=== PATIENT | male | born 1970 | race Hispanic/Latino ===

== ENCOUNTER 2016-08-19 04:52 | Observation (INO) | payer BC ==
[2016-08-19] MEDS ORDERED: NORMAL SALINE 1,000 ML IV ONE (05:49)
--- NOTE | 2016-08-19 05:56 | ERNOTE ---
Medical Problem HPI - General Chief Complaint: General Assessment Time Seen by Provider: 08/19/16 05:37 Source: patient Exam Limitations: no limitations - Immun/Allergies/Home Medications Immunizations: IMMUNIZATION HX Immunizations Up to Date Yes History of Influenza Vaccine Yes Hx Pneumococcal Vaccination No Allergies/Adverse Reactions: Allergies No Known Allergies Allergy (Verified 08/19/16 05:07) Home Medications: HOME MEDICATIONS Propranolol HCl [Inderal] 20 mg PO BID 04/06/12 [Last Taken 09/10/14] Dapagliflozin Propanediol [Farxiga] 10 mg PO DAILY 06/18/14 [Last Taken 08/31/14 ] Testosterone Cypionate [Depo-Testosterone] 200 mg IM Q21D 09/06/14 [Last Taken Unknown] Omeprazole [Prilosec] 40 mg PO DAILY 03/14/15 [Last Taken Unknown] HYDROcodone/ACETAMINOPHEN [[place] 5-325 Tablet] 1 tab PO Q4H PRN #20 tab [Last Taken Unknown] - History of Present History Narrative: Pt has had a lot of life stressors, including his twin brother lately. He drank alcohol heavily 2 days ago and hasn't eaten since 3 days ago. Today he had dark diarrhea Timing: getting worse Severity: moderate Review of Systems - Review of Systems Constitutional: Present: weakness, fatigue. Absent: recent illness EYE: Present: no symptoms reported ENT: Present: no symptoms reported Respiratory: Present: no symptoms reported Cardiology: Absent: chest pain, palpitations Gastrointestinal/Abdominal: Present: See HPI, diarrhea. Absent: nausea, vomiting Genitourinary: Present: no symptoms reported Musculoskeletal: Present: no symptoms reported Skin: Present: no symptoms reported Neurological: Present: no symptoms reported Endocrine: Present: no symptoms reported Hematologic/Lymphatic: Present: no symptoms reported Psych: Present: no symptoms reported - Patient's Past Medical History Patient History - Medical: Anemia, Hypothyroidism, Other Patient History - Cardiac/Respiratory: Hypertension, Hyperlipidemia Patient History - Cancer: No Hx of Cancer Patient History - Surgical Procedures: Colonoscopy, EGD, Other Patient History - Other: None - Family History Mother Family History - Medical: Diabetes Type 2 Insulin Dependent Family History - Cardiac/Respiratory: Hypertension, Myocardial Infarction Father Family History - Medical: Diabetes Type 2 Family History - Cardiac/Respiratory: CVA/Stroke, Hypertension, Myocardial Infarction - Social History Living Situations: other Abuse History: No History of abuse Psych History: No pertinent hx Smoking Status: Never smoker Have you smoked in the past 12 months: No Do you dip or chew tobacco: No Alcohol Use: occasionally Drug Use: none - Immunizations Immunizations Up to Date: Yes Hx Pneumococcal Vaccination: No History of Influenza Vaccine: Yes ED Progress - Results and Orders Patient's Lab Results:: I have reviewed the patient's lab results. Results and Orders: Laboratory Tests 08/19/16 08/19/16 08/19/16 05:19 05:32 05:47 WBC 4.0 Hgb 14.2 Hct 42.0 Plt Count 47 L PT INR (Anticoag Therapy) PTT ([place]) Sodium 141 Potassium 3.3 L Chloride 106 Carbon Dioxide 24.4 Anion Gap 13.9 H BUN 17 D Creatinine 0.76 Est GFR (Non-Af Amer) 118 BUN/Creatinine Ratio 22.4 H Random Glucose 158 H Calcium 8.7 Calcium Adj for Albumin 9.3 Total Bilirubin 2.6 H AST 70 H ALT 64 Alkaline Phosphatase 84 Total Protein 7.0 Albumin 2.9 L Stool Occult Blood Positive H 08/19/16 05:47 WBC Hgb Hct Plt Count PT 12.9 H INR (Anticoag Therapy) 1.24 H PTT ([place]) 28.8 Sodium Potassium Chloride Carbon Dioxide Anion Gap BUN Creatinine Est GFR (Non-Af Amer) BUN/Creatinine Ratio Random Glucose Calcium Calcium Adj for Albumin Total Bilirubin AST ALT Alkaline Phosphatase Total Protein Albumin Stool Occult Blood - Vital Signs Patient's Vital Signs:: I have reviewed the patient's vital signs. Vital Signs: Vital Signs 08/19/16 04:59 Temperature 36.5 C Pulse Rate 130 H Respiratory 18 Rate Blood Pressure 169/99 O2 Sat by Pulse 97 Oximetry - EKG EKG: supraventricular tachycardia, nonspecific ST T wave changes EKG read: Interp. by me - X-Ray X-Ray #1 X-Ray: abdomen Interpretation: Reviewed by me X-ray Comments: Moderate fecal retention nothing acute, no obstruction - Progress/Reassessment Chief Complaint: General Assessment Progress:: Improved Progress Note-Subjective: 08/19/16 07:[address] Nassar about admission he agrees with obs admit. Departure - Departure Clinical Impression: Thrombocytopenia, Alcohol abuse GI bleed Qualifiers: GI bleed type/associated pathology: gastritis Gastritis type: alcoholic Qualified Code(s): K29.21 - Alcoholic gastritis with bleeding Disposition: CH Condition: Fair
[2016-08-19 06:01] LABS: Hemoglobin 14.2 gm/dL (13.5-18.0); Mean Corpuscular Hemoglobin 31.8 pg (27-31); Mean Corpuscular Hgb Conc 33.8 g/dl (32-36); Mean Platelet Volume 12.5 fl (6.0-9.5); Neutrophil # 2.4 K/mm3 (1.3-6.0); Neutrophil % 59.9 % (42-75.0); Platelet Count 47 K/mm3 (150-450); Red Blood Count 4.47 M/mm3 (4.7-6.0); Red Cell Distribution Width 13.8 % (11.5-14.0)
[2016-08-19 06:13] LABS: Prothrombin Time (Patient) 12.9 Seconds (9.4-11.4)
[2016-08-19 06:16] LABS: INR 1.24 INR (0.90-1.10); Partial Thrombolplastin Time 28.8 Seconds (24-32)
[2016-08-19 06:18] LABS: Albumin * 2.9 gm/dl (3.4-5.0); Anion Gap 13.9 mmol/L (6.8-13.8); BUN/Creatinine Ratio 22.4 (9.0-21.6); Bilirubin, Total 2.6 mg/dL (0.0-1.1); Ca. Corrected For Albumin 9.3 mg/dL (8.4-10.2); Calcium * 8.7 mg/dL (7.9-10.9); Carbon Dioxide 24.4 mmol/L (24-32.6); Potassium 3.3 mmol/L (3.4-4.6)
--- OUTSIDE RECORDS SUMMARY | 2016-08-19 06:18 | XMS REPORT | Continuity of Care Document ---
:1970 Author Organization [facility] ([facility]) Address [address] [place] [address] Phone [phone] Care Team Providers Name Role Phone Linda Ventura Primary Care Provider [phone] Source Comments This disclosure is being made pursuant to the Care Everywhere program, applicable federal and state laws, and may not contain all informaitonavailable regarding this patient.[facility] ([facility]) Active Allergies and Adverse Reactions No Known Allergies Current Medications Prescription Sig. Disp. Refills Start Date End Date Status atorvastatin 10 mg Take 10 mg by mouth 5 07/27/2016 Active tablet daily. FARXIGA 10 mg tablet Take 10 mg by mouth 10 07/27/2016 Active daily. ibuprofen 800 mg TAKE ONE TABLET BY 1 07/27/2016 Active tablet MOUTH THREE TIMES DAILY NEEDED WITH FOOD omeprazole 40 mg TAKE ONE CAPSULE BY 5 07/27/2016 Active enteric coated MOUTH DAILY BEFORE capsule EATING propranolol 20 mg Take 20 mg by mouth 07/27/2016 Active tablet daily. testosterone Inject 200 mg Active cypionate 200 mg/mL intramuscularly every 3 injection weeks. Active Problems Not on file Most Recent Encounters Date Type Specialty Providers Description 08/13/2016 Office Visit [facility] Sm[facility] Shearer Dx: Thrombocytopenia Oncology MD Stevo (Primary Dx) 08/12/2016 Office Visit Smooth Johnston Chief Comp: Patient Oncology MD Stevo Reported Reason For Visit Social History Tobacco Use Types Packs/Day Years Used Date Never Smoker Smokeless Tobacco: Never Used Last Filed Vital Signs Vital Sign Reading Time Taken Blood Pressure 129/82 08/13/2016 9:51 AM CDT Pulse 74 08/13/2016 9:51 AM CDT Temperature 37 C (98.6 F) 08/13/2016 9:51 AM CDT Respiratory Rate 16 08/13/2016 9:51 AM CDT Height 1.715 m (5' 7.52") 08/13/2016 9:49 AM CDT Weight 114.7 kg (252 lb 13.9 oz) 08/13/2016 9:49 AM CDT Body Mass Index 39 08/13/2016 9:49 AM CDT Oxygen Saturation 95% 08/13/2016 9:51 AM CDT Plan of Care Date Type Specialty Providers Description 09/24/2016 Appointment Radiology Chief Comp: Patient Reported Reason For Visit 09/24/2016 Appointment Med GI/Hepatology Jose Hanson MD Chief Comp: Patient [address] [place] [address] Visit [phone] (Fax) 09/24/2016 Appointment Med Hematology and Smooth Malhotra Chief Comp: Patient Oncology MD Stevo Reported Reason For [address] [place] [address] [phone] (Fax) Health Maintenance Due Date Last Done Comments Hepatitis B Vaccine (1 of 3 - Primary Series) 1970 Tdap Vaccine 1981 Lipid Disorder Screening 1988 MMR Vaccine 1988 Td Vaccine 1988 Influenza Vaccine: Seasonal (Season Ended) 2016 Results from Last 3 Months DIFFERENTIAL (08/13/2016 9:55 AM) Component Value Range % Neutrophils-Auto Diff 55.5 % Neutrophils-Auto Diff 1970(L) 9029-5433 /MM3 % Lymphocytes-Auto Diff 24.8 % Lymphocytes-Auto Diff 240 586-3830 /MM3 % Monocytes-Auto Diff 13.8 % Monocytes-Auto Diff 490 130-860 /MM3 % Eosinophils-Auto Diff 4.5 % Eosinophils-Auto Diff 160 40-390 /MM3 % Basophils 1.1 % Basophils-Auto Diff 40 10-136 /MM3 % Immature Granulocytes-Auto Diff 0.3 % Immature Granulocytes-Auto Diff 10 /MM3 Specimen Whole Blood CBC (COMPLETE BLOOD COUNT) (08/13/2016 9:55 AM) Component Value Range WBC Count 3.6(L) 3.7-10.5 K/MM3 RBC Count 4.89 4.50-6.20 M/MM3 Hemoglobin 15.3 13.2-17.7 g/dL Hematocrit 45 40-52 % MCV (Mean Corpuscular Volume) 93 82-99 FL MCH (Mean Corpuscular Hemoglobin) 31 25-35 PG MCHC (Mean Corpuscular Hemoglobin Concentration) 34 32-36 % Platelet Count 47(L) 150-400 K/MM3 MPV (Mean Platelet Volume) 12.4(H) 9.4-12.3 FL RBC Dist Width-STD 48.1(H) 35.1-43.9 FL RBC Distrib Width 14.1 9.0-14.5 % Nucleated RBC 0 /100 WBC Specimen Whole Blood VITAMIN B12 (08/13/2016 9:55 AM) Component Value Range Vitamin B12 1466(H)Comment: 211-946 pg/mL New analytical immunoassay with different reference range instituted 02/21/2013 AT 830AM Normal 211 - 946 pg/mL [id number] - 210 pg/mL Deficient<150pg/mL Specimen Blood BLOOD CELL MORPHOLOGY (08/13/2016 9:55 AM) Specimen Whole Blood BLOOD SMEAR MORPHOLOGY (DONE BY TECHNOLOGIST) (08/13/2016 9:55 AM) Component Value Range Smear Review, Tech The erythrocytes appear normocytic and normochromic with no significant anisopoikilocytosis. Leukocytes appear slightly decreased with mild neutropenia and normal morphology. No abnormal cells are seen. Platelets appear moderately decreased with occasional large forms seen. Platelet clumps are not observed. Specimen Whole Blood RETICULOCYTES (08/13/2016 9:55 AM) Component Value Range RBC Count 4.89 4.50-6.20 M/MM3 Retic-% 2.6(H) 0.4-2.1 % Automated Retic, Absolute Count 125.2 12.0-130.0 K/MM3 Specimen Whole Blood LACTATE DEHYDROGENASE (LDH) (08/13/2016 9:55 AM) Component Value Range LDH 251(H) 135-225 U/L Specimen Blood COMPREHENSIVE METABOLIC PANEL (CMP) (08/13/2016 9:55 AM) Component Value Range Sodium 142 135-145 mEq/L Potassium 4.1 3.5-5.0 mEq/L Chloride 104 95-107 mEq/L CO2 23 22-29 mEq/L BUN 6(L) 10-20 mg/dL Creatinine 0.7Comment: 0.6-1.2 mg/dL Creatinine switched to enzymatic method on 08/05/2010.GFR equation switched to IDMS-traceable MDRD equation on 08/05/2010. Calculated GFR values are not valid in clinical settings where serum creatinine is changing. Glucose 176(H)Comment: 65-99 mg/dL The Expert Committee on the Diagnosis and Classification of Diabetes has defined impaired fasting glucose as greater than or equal to 100 mg/dL but less than 126 mg/dL.(Diabetes Care 28 (Suppl 1)S41,2005) Calcium 8.8 8.5-10.5 mg/dL Total Protein 7.5 6.0-8.0 g/dL Albumin 3.5 3.4-4.8 g/dL AST 129(H)Comment: 0-40 U/L Adult reference ranges updated on 02/21/13 at 830am ALP 88 40-129 U/L Bilirubin Total 0.9 <=1.2 mg/dL ALT 85(H)Comment: 0-41 U/L The upper limit of normal for alanine aminotransferase (ALT) reference ranges for adults is controversial with some authorities recommending limit as low as 30 U/L for males and 19 U/L for females. Th ere is increased incidence of subclinical liver disease (e.g., early steatohepatitis) in patients with ALT values in the range of 31-41 U/L for males and 20-33 U/L for females. ALT values should alway s be interpreted in conjunction with clinical history, physical examination findings, and, if applicable, data from other diagnostic tests. Anion Gap 15 <17 mEq/L Calculated GFR >90 >60 mL/min/1.73 m2 Specimen Blood CBC WITH DIFFERENTIAL (08/13/2016 9:55 AM) Specimen Whole Blood Narrative The following orders were created for panel order CBC WITH DIFFERENTIAL. Procedure Abnormality Status --------- ------ CBC (COMPLETE BLOOD COUNT)[[id number]] AbnormalFinal result DIFFERENTIAL[[id number]] AbnormalFinal result Please view results for these tests on the individual orders.
[2016-08-19] MEDS ORDERED: PANTOPRAZOLE SODIUM 40 MG in NORMAL SALINE 100 ML IV ONE (06:56)
[2016-08-19] MEDS ORDERED: SUCRALFATE 1 G/10 ML UDC PO ONE (06:57)
[2016-08-19] MEDS: NORMAL SALINE 1,000 ML IV PRN (07:32)
--- OUTSIDE RECORDS SUMMARY | 2016-08-19 07:36 | XMS REPORT | Continuity of Care Document ---
:1970 Author Organization [facility] ([facility]) Address [address] [place] [address] Phone [phone] Care Team Providers Name Role Phone Linda Ventura Primary Care Provider [phone] Source Comments This disclosure is being made pursuant to the Care Everywhere program, applicable federal and state laws, and may not contain all informaitonavailable regarding this patient.[facility] ([facility]) Active Allergies and Adverse Reactions No [...] Patient [address] [place] [address] Visit [phone] (Fax) 09/24/2016 Appointment Med Hematology and Smooth Malhotra Chief Comp: Patient Oncology MD Stevo Reported Reason For [address] [place] [address] [phone] (Fax) Health Maintenance Due Date Last Done Comments Hepatitis B Vaccine (1 of 3 - Primary Series) 1970 Tdap Vaccine 1981 Lipid Disorder Screening 1988 MMR Vaccine 1988 Td Vaccine 1988 Influenza Vaccine: Seasonal (Season Ended) 2016 Results from Last 3 Months DIFFERENTIAL (08/13/2016 9:55 AM) Component Value Range % Neutrophils-Auto Diff 55.5 % Neutrophils-Auto Diff 1970(L) 8778-5502 /MM3 % Lymphocytes-Auto Diff 24.8 % Lymphocytes-Auto Diff 183 162-1064 /MM3 % Monocytes-Auto Diff 13.8 % Monocytes-Auto [...] AT 830AM Normal 211 - 946 pg/mL [id number] - 210 pg/mL Deficient<150pg/mL Specimen Blood BLOOD [...] Abnormality Status --------- ------ CBC (COMPLETE BLOOD COUNT)[[id number]] AbnormalFinal result DIFFERENTIAL[[id number]] AbnormalFinal result Please view results for these tests on the individual orders.
[2016-08-19] MEDS ORDERED: PANTOPRAZOLE SODIUM 40 MG in NORMAL SALINE 100 ML IV SCH (07:45)
[2016-08-19 12:21] LABS: Hematocrit 39.2 % (42.0-52.0); Hemoglobin 13.4 gm/dL (13.5-18.0); Mean Cell Volume 94.5 fl (78-100); Mean Corpuscular Hemoglobin 32.3 pg (27-31); Mean Corpuscular Hgb Conc 34.2 g/dl (32-36); Mean Platelet Volume 12.3 fl (6.0-9.5); Neutrophil # 2.5 K/mm3 (1.3-6.0); Neutrophil % 62.5 % (42-75.0); Platelet Count 43 K/mm3 (150-450); Red Blood Count 4.15 M/mm3 (4.7-6.0); Red Cell Distribution Width 13.9 % (11.5-14.0); White Blood Count 4.1 K/mm3 (4.0-10.5)
[2016-08-19 12:30] LABS: Anion Gap 12.8 mmol/L (6.8-13.8); BUN/Creatinine Ratio 22.2 (9.0-21.6); Calcium * 8.4 mg/dL (7.9-10.9); Carbon Dioxide 24.1 mmol/L (24-32.6); Estimated Creat Clear 125.3; Potassium 3.9 mmol/L (3.4-4.6)
[2016-08-19] MEDS: PANTOPRAZOLE SODIUM 40 MG in NORMAL SALINE 100 ML IV SCH (19:34)
--- NOTE | 2016-08-19 23:54 | HP ---
Chief Complaint - Chief Complaint Date of Service: 08/19/16 Time of Service: 16:00 Chief Complaint: Bloody stool History of Present Illness: Karson is a 45 yo male with known thrombocytopenia, followed at [facility]. Reports baseline near 45,000. In the last 24 hours he has had nausea and bloody stool that prompted him to go to the ER. He reports being under more stress than usual as his twin brother just from bleeding esophageal varice. He denies any NSAID use. Hemoglobin in the ER was normal. He denies hematemesis. He does not have any known varices, last EGD 3 years ago. - Patient's Past Medical History Patient History - Medical: Anemia, Hypothyroidism Patient History - Cardiac/Respiratory: Hypertension, Hyperlipidemia Patient History - Cancer: No Hx of Cancer Patient History - Surgical Procedures: Colonoscopy, EGD Patient History - Other: None - Family History Mother Family History - Medical: Diabetes Type 2 Insulin Dependent Family History - Cardiac/Respiratory: Hypertension, Myocardial Infarction Family History - Cancer: No pertinent family hx Father Family History - Medical: Diabetes Type 2 Family History - Cardiac/Respiratory: CVA/Stroke, Hypertension, Myocardial Infarction Family History - Cancer: No pertinent family hx Brother Family History - Medical: , Alcohol Abuse, Other - Cirrhosis, Esophageal Varices - Social History Living Situations: other Abuse History: No History of abuse Psych History: No pertinent hx Smoking Status: Never smoker Have you smoked in the past 12 months: No Do you dip or chew tobacco: No Patient requests Smoking Cessation Consult: No Initiate information on Smoking Cessation: No Alcohol Use: occasionally Drug Use: none - Immunizations Immunizations Up to Date: Yes Hx Pneumococcal Vaccination: No History of Influenza Vaccine: Yes Review Of Systems (GEN) - Review of Systems Generalized/Overall Review: Present: No Symptoms Reported EENTM: Present: No Symptoms Reported Respiratory: Present: No Symptoms Reported Cardiac: Present: No Symptoms Reported Abdominal: Present: Nausea, Melena. Absent: Hematemesis, Abdominal Pain, Constipation Genitourinary: Present: No Symptoms Reported Musculoskeletal: Present: No Symptoms Reported Neurological: Present: No Symptoms Reported Skin: Present: No Symptoms Reported Endocrine: Present: No Symptoms Reported Immunizations: IMMUNIZATION HX Immunizations Up to Date Yes History of Influenza Vaccine Yes Hx Pneumococcal Vaccination No Allergies/Adverse Reactions: Allergies Allergy/AdvReac Type Severity Reaction Status Date / Time No Known Allergies Allergy Verified 08/19/16 05:07 Home Medications: HOME MEDICATIONS Propranolol HCl [Inderal] 20 mg PO DAILY 04/06/12 [Last Taken 09/10/14] Dapagliflozin Propanediol [Farxiga] 10 mg PO DAILY 06/18/14 [Last Taken 08/31/14 ] Testosterone Cypionate [Depo-Testosterone] 200 mg IM Q21D 09/06/14 [Last Taken Unknown] Omeprazole [Prilosec] 40 mg PO DAILY 03/14/15 [Last Taken Unknown] HYDROcodone/ACETAMINOPHEN [[place] 5-325 Tablet] 1 tab PO Q4H PRN #20 tab [Last Taken Unknown] Exam - Exam Vital Signs: Vital Signs - Last Taken Temp 37.2 C 08/19/16 19:00 Pulse 104 H 08/19/16 19:00 Resp 16 08/19/16 19:00 BP 129/71 08/19/16 19:00 Pulse Ox 96 08/19/16 19:00 Constitutional: Present: Alert, Oriented x3, Cooperative, No distress ENT Exam: Present: hearing grossly normal Eye Exam: bilateral eye: normal inspection Respiratory: Present: lungs clear, normal breath sounds Cardiovascular/Chest: Present: regular rate, rhythm, no murmur Abdomen: Present: Normal bowel sounds, soft, nontender, nondistended, no rebound tenderness Extremity: Present: normal range of motion, non-tender, normal inspection, no pedal edema Skin Exam: Present: normal color, warm/dry, no cyanosis Diagnostic Studies: Abnormal Lab Results 08/19/16 08/19/16 Range/Units 12:10 12:10 RBC 4.15 L (4.7-6.0) M/mm3 Hgb 13.4 L (13.5-18.0) gm/dL Hct 39.2 L (42.0-52.0) % MCH 32.3 H (27-31) pg Plt Count 43 L (150-450) K/mm3 MPV 12.3 H (6.0-9.5) fl Monocytes % 12.6 H (0.0-9) % Lymphocytes # 0.9 L (1.5-3.5) k/mm3 Chloride 107 H (97-106) mmol/L BUN/Creatinine Ratio 22.2 H (9.0-21.6) Random Glucose 159 H (70-110) mg/dL Laboratory Results WBC 4.1 K/mm3 (4.0-10.5) 08/19/16 12:10 RBC 4.15 M/mm3 (4.7-6.0) L 08/19/16 12:10 Hgb 13.4 gm/dL (13.5-18.0) L 08/19/16 12:10 Hct 39.2 % (42.0-52.0) L 08/19/16 12:10 MCV 94.5 fl (78-100) 08/19/16 12:10 MCH 32.3 pg (27-31) H 08/19/16 12:10 MCHC 34.2 g/dl (32-36) 08/19/16 12:10 RDW 13.9 % (11.5-14.0) 08/19/16 12:10 Plt Count 43 K/mm3 (150-450) L 08/19/16 12:10 MPV 12.3 fl (6.0-9.5) H 08/19/16 12:10 Immature Gran % (Auto) 0.20 % (0.001-0.429) 08/19/16 12:10 Immature Gran # (Auto) 0.01 K/mm3 (0.000-0.0310) 08/19/16 12:10 Neutrophils % 62.5 % (42-75.0) 08/19/16 12:10 Lymphocytes % 21.5 % (20-51) 08/19/16 12:10 Monocytes % 12.6 % (0.0-9) H 08/19/16 12:10 Eosinophils % 2.2 % (0.0-3.0) 08/19/16 12:10 Basophils % 1.0 % (0.0-1.0) 08/19/16 12:10 Nucleated RBC % 0.0 k/mm3 (0-1) 08/19/16 12:10 Neutrophils # 2.5 K/mm3 (1.3-6.0) 08/19/16 12:10 Lymphocytes # 0.9 k/mm3 (1.5-3.5) L 08/19/16 12:10 Monocytes # 0.5 k/mm3 (0.0-1.0) 08/19/16 12:10 Eosinophils # 0.1 k/mm3 (0.0-0.7) 08/19/16 12:10 Absolute Basophils 0.0 k/mm3 (0.0-0.1) 08/19/16 12:10 PT 12.9 Seconds (9.4-11.4) H 08/19/16 05:47 INR (Anticoag Therapy) 1.24 INR (0.90-1.10) H 08/19/16 05:47 PTT ([place]) 28.8 Seconds (24-32) 08/19/16 05:47 Sodium 140 mmol/L (132-142) 08/19/16 12:10 Plasma Sodium 141 mmol/L (130-142) 08/19/16 12:10 Potassium 3.9 mmol/L (3.4-4.6) 08/19/16 12:10 Chloride 107 mmol/L (97-106) H 08/19/16 12:10 Carbon Dioxide 24.1 mmol/L (24-32.6) 08/19/16 12:10 Anion Gap 12.8 mmol/L (6.8-13.8) 08/19/16 12:10 BUN 16 mg/dL (6-23) 08/19/16 12:10 Creatinine 0.72 mg/dL (0.4-1.4) 08/19/16 12:10 Est GFR (Non-Af Amer) 125 mL/min (60-130) 08/19/16 12:10 BUN/Creatinine Ratio 22.2 (9.0-21.6) H 08/19/16 12:10 Random Glucose 159 mg/dL (70-110) H 08/19/16 12:10 Calcium 8.4 mg/dL (7.9-10.9) 08/19/16 12:10 Calcium Adj for Albumin 9.3 mg/dL (8.4-10.2) 08/19/16 05:47 Total Bilirubin 2.6 mg/dL (0.0-1.1) H 08/19/16 05:47 AST 70 U/L (0-48) H 08/19/16 05:47 ALT 64 U/L (19-67) 08/19/16 05:47 Alkaline Phosphatase 84 U/L (50-170) 08/19/16 05:47 Total Protein 7.0 gm/dL (6.2-8.2) 08/19/16 05:47 Albumin 2.9 gm/dl (3.4-5.0) L 08/19/16 05:47 Stool Occult Blood Positive H 08/19/16 05:19 Assessment/Plan - Narrative Narrative: Karson is a 45 yo male with GI bleed. Hemoglobin initially normal. Will admit to observation due to his thrombocytopenia he is at higher risk for complications and needs to have hemoglobin monitored serially for 24 hours. If stable will plan to discharge to home tomorrow and expect 1 midnight stay. Platelets are stable compared to his baseline. Will place on IV protonix for treatment of suspected gastric stress ulcer. Esophageal Varices are a consideration, but would expect hematemesis or more significant hemoglobin drop. - Assessment/Plan (1) GI bleed Problem: Acute Qualifiers: GI bleed type/associated pathology: gastritis Gastritis type: alcoholic Qualified Code(s): K29.21 - Alcoholic gastritis with bleeding (2) Thrombocytopenia Problem: Acute
[2016-08-20 00:28] LABS: Hemoglobin 12.1 gm/dL (13.5-18.0)
[2016-08-20] MEDS: NORMAL SALINE 1,000 ML IV PRN (03:57)
[2016-08-20 05:38] LABS: Hematocrit 36.6 % (42.0-52.0)
[2016-08-20 07:15] LABS: Mean Cell Volume 95.3 fl (78-100); Mean Corpuscular Hemoglobin 31.8 pg (27-31); Mean Corpuscular Hgb Conc 33.4 g/dl (32-36); Mean Platelet Volume 12.9 fl (6.0-9.5); Neutrophil # 1.5 K/mm3 (1.3-6.0); Neutrophil % 54.3 % (42-75.0); Platelet Count 39 K/mm3 (150-450); Red Cell Distribution Width 13.9 % (11.5-14.0); White Blood Count 2.8 K/mm3 (4.0-10.5)
[2016-08-20] MEDS: PANTOPRAZOLE SODIUM 40 MG in NORMAL SALINE 100 ML IV SCH (10:30)
[2016-08-20] MEDS ORDERED: ACETAMINOPHEN 325 MG TABLET PO PRN (10:49)
[2016-08-20 11:02] LABS: Hematocrit 37.8 % (42.0-52.0); Hemoglobin 12.8 gm/dL (13.5-18.0); Mean Cell Volume 94.5 fl (78-100); Mean Corpuscular Hgb Conc 33.9 g/dl (32-36); Mean Platelet Volume 12.2 fl (6.0-9.5); Neutrophil # 1.8 K/mm3 (1.3-6.0); Neutrophil % 62.8 % (42-75.0); Platelet Count 37 K/mm3 (150-450); Red Cell Distribution Width 13.8 % (11.5-14.0); White Blood Count 2.9 K/mm3 (4.0-10.5)
[2016-08-20 11:37] VITALS: BP 122/77
--- NOTE | 2016-08-20 11:55 | DS ---
(1) GI bleed Diagnosis(s): Karson Cazares is a 45 yo male admitted with Upper GI bleed with witnessed hematemesis and hemoccult positive stools. His initial hemoglobin was not significantly low so he was admitted to observation and started on PPI. He had serial hemoglobins that did not drop significantly. His vitals were stable. With no evidence of acute GI bleeding he was discharged to home. Discussed with general surgery, Dr. Bay, who recommended outpatient scopes. He will be discharged to home on continued PPI for the next month. Educated to avoid NSAIDs , alcohol, tobacco, and will be set up for outpatient EGD with his GI in [place]. Problem: Acute Qualifiers: GI bleed type/associated pathology: gastritis Gastritis type: acute gastritis Qualified Code(s): K29.01 - Acute gastritis with bleeding (2) Thrombocytopenia Problem: Acute (3) Depression Problem: Acute Procedures Performed: none Discharge Disposition: Home self care Disposition: Home self-care Condition: Good Discharge Activity: Activity as tolerated Discharge Diet: General/regular food Referrals: Linda Ventura, [facility] [Primary Care Provider] - [facility]OUTSIDE [Non Staff Physicians] - ([facility] (already a patient , unsure of name) Needs appt moved up to next available for possible EGD/ Colonoscopy for GI Bleed) Problem Oriented Discharge Instructions to Patient/Family: Gastrointestinal Bleeding, [id number] Additional Patient Instructions (free text): Avoid aspirin, ibuprofen, aleve. No alcohol. Take omeprazole 40mg every 12 hours for one month, then back to once a day. Follow up with Linda Ventura on 08-27-16 @ 11:00 am. Prescriptions (Any new or edited meds): FLUoxetine HCL [Fluoxetine HCl] 20 mg PO DAILY #30 tablet Omeprazole 40 mg PO BID #60 capsule. Complete Home Medications List: Complete Home Medication List: Propranolol HCl [Inderal] 20 mg PO DAILY 04/06/12 Dapagliflozin Propanediol [Farxiga] 10 mg PO DAILY 06/18/14 Testosterone Cypionate [Depo-Testosterone] 200 mg IM Q21D 09/06/14 HYDROcodone/ACETAMINOPHEN [[place] 5-325 Tablet] 1 tab PO Q4H PRN #20 tab FLUoxetine HCL [Fluoxetine HCl] 20 mg PO DAILY #30 tablet 08/20/16 Omeprazole 40 mg PO BID #60 capsule. 08/20/16
== END 2016-08-20 13:20 | disposition home or self-care (01) ==
LOC: ER 04:52 → MS 07:29
PROVIDERS: ADMIT Family Medicine; ATTEND Family Medicine
DX: K29.21 Alcoholic gastritis with bleeding (principal); D69.6 Thrombocytopenia, unspecified; F32.9 Major depressive disorder, single episode, unspecified; I10 Essential (primary) hypertension; E03.9 Hypothyroidism, unspecified; E78.5 Hyperlipidemia, unspecified
CPT/HCPCS: 36415; 74020; 80048; 80053; 82272; 85014; 85018; 85025; 85610; 85730; 93005; 96365; 99284; G0378